=== PATIENT | male | born 1950 | race Caucasian/White ===

== ENCOUNTER 2016-08-09 08:57 | Day surgery (SDC) | payer MEDICARE, OTHER ==
[~2016-08-09] VITALS: Ht 172.7 cm; Wt 77.7 kg
[2016-08-09 09:41] VITALS: Ht 172.7 cm; Wt 77.7 kg
[2016-08-09] MEDS ORDERED: arthritis med PO (09:51)
[2016-08-09 10:26] VITALS: BP 124/78; PULSE 57; RESP 22
[2016-08-09] MEDS ORDERED: PROPOFOL 40 ML ONE (11:28)
[2016-08-09 11:46] VITALS: BP 142/90; PULSE 54; RESP 12
--- NOTE | 2016-08-09 11:50 | GILP ---
DATE OF PROCEDURE: NAME OF PROCEDURES: Colonoscopy and polypectomy. SURGEON: Nadir Young MD PREOPERATIVE DIAGNOSIS: Screening colonoscopy. POSTOPERATIVE DIAGNOSES 1. Colonoscopy all the way to the cecum. 2. Poor prep making the exam suboptimal. 3. Sigmoid colon polyp at 15 cm from the anus was removed using the snare and electrocautery. 4. Internal hemorrhoids. INDICATION FOR THE PROCEDURE: Mr. Michael Wooten is a 65-year-old male patient who was scheduled f or screening colonoscopy. The procedure and possible complications were well explained to the patient, he understood and conse nted to the procedure. DESCRIPTION OF PROCEDURE: Under the influence of anesthesia, the colonoscope was carefully introduc ed in the rectum and under direct vision, it was advanced all the way to the cecum. FINDINGS: The patient had a sigmoid colon polyp at 15 cm from the anus and it was removed using the snare and electrocautery. The patient had poor prep making the exam suboptimal. He was noted to h ave internal hemorrhoids. He tolerated the procedure very well and there was no complication from the procedure. At the end o f the procedure, he was awake with stable vital signs and he was discharged home to the care of his family. IMPRESSION: 1. Colonoscopy all the way to the cecum. 2. Sigmoid colon polyp at 15 cm from the anus was removed using the snare and electrocautery. 3. Poor prep making the exam suboptimal. 4. Internal hemorrhoids. PLAN: 1. Await histopathology report. 2. Because of the presence of polyps and poor prep and suboptimal examination, would recommend repe at colonoscopy in 3 years with better preparation. Dictated By: NADIR NEELY/TERESA Conf#: [id number] DID#: [id number]
== END 2016-08-09 17:33 | disposition home or self-care (01) ==
LOC: GIL 08:57
PROVIDERS: ATTEND Internal Medicine Gastroenterology
DX: Z12.11 Encounter for screening for malignant neoplasm of colon (principal); K63.5 Polyp of colon; K64.8 Other hemorrhoids; E78.5 Hyperlipidemia, unspecified
CPT/HCPCS: 88305